=== PATIENT | male | born 1970 | race Caucasian/White ===

== ENCOUNTER 2017-01-01 22:28 | Emergency (ER) | payer SELFPAY ==
[~2017-01-01] VITALS: Ht 175.3 cm; Wt 93.0 kg
[~2017-01-01 22:28] MED LIST: ALBU18HF2 IH; FLUT1DIS IH; FLUT1DIS3 IH
[2017-01-01] MEDS ORDERED: IPRATROPIUM BROMIDE (0.02%) 0.5MG/2.5ML NEB HHN STA (23:59)
[2017-01-01] MEDS ORDERED: ALBUTEROL (0.083%) 2.5MG/3ML NEB HHN STA (23:59)
[2017-01-01] MEDS ORDERED: PREDNISONE 20MG TABLET PO STA (23:59)
[2017-01-02 02:10] VITALS: BP 136/79
== END 2017-01-02 02:17 | disposition home or self-care (01) ==
LOC: ER 22:29
DX: J45.901 Unspecified asthma with (acute) exacerbation (principal); Z88.6 Allergy status to analgesic agent
CPT/HCPCS: 71010; 94644; 99285; J7512; J7611; Z7610

== ENCOUNTER 2019-07-10 23:24 | Emergency (ER) | payer OTHER ==
[~2019-07-10] VITALS: Ht 177.8 cm; Wt 93.0 kg
[2019-07-11] MEDS ORDERED: PREDNISONE 20MG TABLET PO STA (00:05)
[2019-07-11] MEDS ORDERED: IPRATROPIUM BROMIDE (0.02%) 0.5MG/2.5ML NEB HHN STA (00:05)
[2019-07-11] MEDS ORDERED: ALBUTEROL (0.083%) 2.5MG/3ML NEB HHN STA (00:05)
[2019-07-11 06:02] VITALS: BP 125/80
== END 2019-07-11 06:04 | disposition home or self-care (01) ==
LOC: ER 07-11 00:14
DX: J45.901 Unspecified asthma with (acute) exacerbation (principal); J06.9 Acute upper respiratory infection, unspecified; Z79.899 Other long term (current) drug therapy; Z88.6 Allergy status to analgesic agent
CPT/HCPCS: 71045; 94640; 99283; J7512; J7611; Z7610

== ENCOUNTER 2022-08-01 11:44 | Emergency (ER) | payer MEDICAID, OTHER ==
[~2022-08-01] VITALS: Ht 165.1 cm; Wt 94.0 kg
[2022-08-01] MEDS ORDERED: HYDROCODONE/ACETAMINOPHEN 5/325MG TABLET PO STA ×2 (12:19→15:06)
[2022-08-01] MEDS ORDERED: BACITRACIN ZINC OINT UDPKT TOP ONE (12:30)
[2022-08-01] MEDS ORDERED: MORPHINE SULFATE 4 MG/ML CPJ (NOT FOR IM USE) IV STA (17:46)
[2022-08-01 17:54] LABS: BASOPHILS % 0.4 % (0.0-2.0); EOSINOPHILS % 0.2 % (0.0-5.0); HEMATOCRIT. 47.4 % (42.0-52.0); HEMOGLOBIN. 16.3 g/dL (14.0-18.0); LYMPHOCYTES % 14.7 % (20.0-50.0); MEAN CORPUSCULAR HEMOGLOBIN 31.3 pg (28.0-32.0); NEUTROPHILS % 76.7 % (40.0-76.0); PLATELET 194 x1000/uL (130-400); RED BLOOD CELL COUNT 5.21 mill/uL (4.7-6.1); RED CELL DISTRIBUTION WIDTH 13.8 % (11.6-14.6)
[2022-08-01 17:57] LABS: CHLORIDE 109 mEq/L (98-107)
[2022-08-01] MEDS ORDERED: IOHEXOL-300 100 ML BOTTLE ONE (19:02)
[2022-08-01] MEDS ORDERED: MORPHINE SULFATE 4 MG/ML CPJ (NOT FOR IM USE) IV ONE (22:15)
[2022-08-01] MEDS ORDERED: HYDROMORPHONE HCL/PF 2MG/ML CPJ IV ONE (23:15)
[2022-08-02] MEDS ORDERED: ONDANSETRON HCL 4MG/2ML INJ IV ONE (01:30)
[2022-08-02] MEDS ORDERED: HYDROMORPHONE HCL/PF 2MG/ML CPJ IV ONE (04:00)
[2022-08-02] MEDS ORDERED: HYDROCODONE/ACETAMINOPHEN 5/325MG TABLET PO ONE (11:00)
[2022-08-02] MEDS ORDERED: ONDANSETRON HCL 4MG/2ML INJ IV STA (13:16)
[2022-08-02] MEDS ORDERED: MORPHINE SULFATE 4 MG/ML CPJ (NOT FOR IM USE) IV STA (13:16)
[2022-08-02 14:00] VITALS: BP 148/74
== END 2022-08-02 14:52 | disposition short-term general hospital (02) ==
LOC: ER 11:44
DX: S82.292A Other fracture of shaft of left tibia, initial encounter for closed fracture (principal); S82.492A Other fracture of shaft of left fibula, initial encounter for closed fracture; S60.512A Abrasion of left hand, initial encounter; S80.212A Abrasion, left knee, initial encounter; R51.9 Headache, unspecified; J45.909 Unspecified asthma, uncomplicated; V03.19XA Pedestrian with other conveyance injured in collision with car, pick-up truck or van in traffic accident, initial encounter; Y93.89 Activity, other specified; Y92.89 Other specified places as the place of occurrence of the external cause; Y99.8 Other external cause status; Z88.6 Allergy status to analgesic agent; Z20.822 Contact with and (suspected) exposure to COVID-19
CPT/HCPCS: 36415; 70450; 71045; 72170; 73560; 73590; 73610; 73700; 74177; 80053; 85025; 87426; 96374; 96375; 96376; 99285; C9803; J1170; J2270; J2405; Q9967; Z7610